=== PATIENT | male | born 1950 | race American Indian/Alaskan Native ===

== ENCOUNTER 2018-02-16 11:54 | Emergency (ER) | payer MEDICARE, MEDICAID ==
[2018-02-16 11:55] VITALS: BMI 28.5
[2018-02-16 12:01] VITALS: RESP 20; TEMP 97.5
--- NOTE | 2018-02-16 12:28 | C.PDOC ---
History Of Present Illness 67 yo male comes in for evaluation of " wax build up in my ears", request ear irrigation. Pt denies any other active complaints. headache, fever, earache or discharge, dizziness, vertigo, denies any other active complaints. Ambulate to Ed for evaluation, not in any apparent distress. Time Seen by Provider: 02/16/18 12:11 Chief Complaint (Nursing): ENT Problem History Per: Patient Past Medical History Reviewed: Historical Data, Nursing Documentation, Vital Signs Vital Signs: Last Vital Signs Temp 97.5 F L 02/16/18 12:00 Pulse 70 02/16/18 12:00 Resp 20 02/16/18 12:00 BP 159/92 H 02/16/18 12:00 Pulse Ox 99 02/16/18 12:00 - Medical History PMH: Anxiety, Arthritis, CAD, Depression, HTN, Hypercholesterolemia, Mitral Valve Prolapse, Chronic Kidney Disease - [facility] Procedures EXERCISE TRMT MUSCULOSK LOW BACK/LE W ASSIST EQUIP (02/15/17) GAIT TRAINING/AMBULAT TREATMENT USING ASSIST EQUIPMENT (02/15/17) HOME MANAGEMENT TREATMENT USING ASSIST EQUIPMENT (02/15/17) INTRODUCE ANTI-INFLAM IN PERIPH NRV, PLEXI, PERC (02/13/17) INTRODUCE LOCAL ANESTH IN PERIPH NRV, PLEXI, PERC (02/13/17) INTRODUCTION OF SERUM/TOX/VACCINE INTO MUSCLE, PERC APPROACH (02/15/17) REPLACEMENT OF LEFT HIP JOINT WITH SYNTH SUB, OPEN APPROACH (02/13/17) Family History: States: No Known Family Hx - Social History Hx Alcohol Use: Yes Hx Substance Use: Yes Review Of Systems Except As Marked, All Systems Reviewed And Found Negative. Constitutional: Negative for: Fever, Chills Eyes: Negative for: Pain, Vision Change ENT: Positive for: Ear Pain. Negative for: Ear Discharge, Nose Discharge, Nose Congestion, Throat Pain, Throat Swelling Cardiovascular: Negative for: Chest Pain Musculoskeletal: Negative for: Neck Pain Neurological: Negative for: Weakness, Numbness, Altered Mental Status, Headache, Dizziness Physical Exam - Physical Exam Appears: Well, Non-toxic, No Acute Distress Skin: Normal Color, Warm Head: Atraumatic, Normacephalic Eye(s): bilateral: PERRL Ear(s): Bilateral: TM Obscured By Wax (no ear canal edema, no mastoid tenderness B/L) Nose: No Flaring, No Discharge Oral Mucosa: Moist Throat: No Erythema, No Drooling Neck: Trachea Midline, No Midline Cervical Tenderness, No Paracervical Tenderness, No Step Off Deformity, Supple Lymphatic: No Adenopathy (cervical) Neurological/Psych: Oriented x3, Normal Speech ED Course And Treatment O2 Sat by Pulse Oximetry: 99 Pulse Ox Interpretation: Normal Progress Note: On re-eval, pt is afebrile, hemodynamicaly stable. NOn-toxic. ENT: cerumen removed completely B/L. On re-eval of B/L ear, no evidence of otitis externa, TM- normal. NO mastoid tenderness B/L. Pt advised. ref to f/u with ENT in 2-3 days for re-eavl. return if any new changes. Disposition Counseled Patient/Family Regarding: Diagnosis, Need For Followup, Rx Given - Disposition Referrals: Ramez Perry MD [Staff Provider] - Disposition: HOME/ ROUTINE Disposition Time: 13:09 Condition: STABLE Additional Instructions: Keep ear dry for 1 week, avoid water exposure Follow up with ENT as need for further evaluation. return if any new changes., Instructions: Ear Wax Impaction Forms: [employer] (Malagasy) - Clinical Impression Clinical Impression: Cerumen impaction Procedures - Ear Wax Removal Both Ears Cerumenolytic Used: Cerumenex Result: Re-examined: cerumen removed completely TM Examination: TM(s) intact, normal appearance Ear Canal Exam: atraumatic Patient Tolerated Procedure: well Complications: no problems Technique: ear canal irrigated
[2018-02-16 13:37] VITALS: BP 167/86; PULSE 75; O2SAT 98
== END 2018-02-16 13:37 | disposition home or self-care (01) ==
LOC: C.ER 11:54
DX: H61.23 Impacted cerumen, bilateral (principal)